=== PATIENT | male | born 2000 | race American Indian/Alaskan Native ===

== ENCOUNTER 2021-07-01 05:53 | Emergency (ER) | payer OTHER ==
[2021-07-01] MEDS ORDERED: ACETAMINOPHEN 500 MG TAB PO ONE (10:42)
[2021-07-01] MEDS ORDERED: KETOROLAC 60 MG/2 ML INJ IM ONE (10:42)
[2021-07-01] MEDS ORDERED: dexAMETHasone 20 MG/5 ML VIAL IM ONE (10:44)
--- NOTE | 2021-07-01 10:45 | Emergency Department Report ---
- General Chief Complaint: Upper Respiratory Infection Stated Complaint: COVID SYMPTOMS Time Seen by Provider: 07/01/21 09:58 Source: patient, EMS Mode of arrival: Ambulatory Limitations: No Limitations - History of Present Illness Initial Comments: 20-year-old otherwise healthy male presents to the ER today via EMS with complaints of flulike symptoms. Patient states that symptoms started about earlier this week. He reports productive cough, rhinorrhea, nasal congestion, body aches, generalized weakness, chills, sore throat, and headache. [place] he does not recall being on any specific person who has been sick. He denies any travel. He states that has been tried gigc-gfh-cjjqnap remedies without much relief. He has not taken a COVID-19 test nor flu test since he has been sick. He has not gotten a COVID-19 vaccine or flu vaccine. He does smoke marijuana. Reports no chest pain, shortness of breath, wheezing, GI or symptoms. MD Complaint: fever, cough, sore throat, rhinorrhea, nasal congestion -: Gradual, days(s), week(s) (1) - Related Data Previous Rx's Medication Instructions Recorded Last Taken Type Ibuprofen [Motrin] 600 mg PO Q8H PRN #30 tablet 07/01/21 Unknown Rx Allergies Allergy/AdvReac Type Severity Reaction Status Date / Time No Known Allergies Allergy Verified 07/01/21 05:55 ED Review of Systems ROS: Stated complaint: COVID SYMPTOMS Other details as noted in HPI Comment: All other systems reviewed and negative Constitutional: chills, weakness ENT: throat pain, congestion, other (rhinorrhea) Respiratory: cough. denies: shortness of breath, SOB with exertion, SOB at rest, wheezing Cardiovascular: denies: chest pain, palpitations Gastrointestinal: denies: abdominal pain, nausea, diarrhea, constipation, hematemesis, hematochezia Genitourinary: denies: urgency, dysuria Musculoskeletal: myalgia Skin: denies: rash, lesions, change in color, change in hair/nails, pruritus Neurological: headache. denies: numbness, paresthesias, confusion, abnormal gait, vertigo Psychiatric: denies: anxiety, depression, auditory hallucinations, visual hallucinations, homicidal thoughts, suicidal thoughts Hematological/Lymphatic: denies: easy bleeding, easy bruising ED Past Medical Hx - Medications Home Medications: Home Medications Medication Instructions Recorded Confirmed Last Taken Type Ibuprofen [Motrin] 600 mg PO Q8H PRN #30 tablet 07/01/21 Unknown Rx ED Physical Exam - General Limitations: No Limitations General appearance: alert, in no apparent distress, other (patient ill appearing) - Head Head exam: Present: atraumatic, normocephalic, normal inspection - Eye Eye exam: Present: normal appearance, PERRL, EOMI Pupils: Present: normal accommodation - ENT ENT exam: Present: mucous membranes moist - Expanded ENT Exam Expanded Mouth exam: Present: normal external inspection Teeth exam: Present: normal inspection Throat exam: Positive: tonsillar erythema. Negative: tonsillomegaly, tonsillar exudate, R peritonsillar mass, L peritonsillar mass - Neck Neck exam: Present: normal inspection, full ROM. Absent: lymphadenopathy - Respiratory Respiratory exam: Present: normal lung sounds bilaterally. Absent: respiratory distress, wheezes, rales, rhonchi - Cardiovascular Cardiovascular Exam: Present: normal rhythm, tachycardia, normal heart sounds - GI/Abdominal GI/Abdominal exam: Present: soft. Absent: tenderness, guarding, rebound - Neurological Exam Neurological exam: Present: alert, oriented X3, CN II-XII intact, normal gait - Psychiatric Psychiatric exam: Present: normal affect, normal mood - Skin Skin exam: Present: intact ED Course Vital Signs 07/01/21 07/01/21 05:54 12:39 Temperature 99.8 F H 98.0 F Pulse Rate 114 H 80 Respiratory 18 16 Rate Blood Pressure 135/90 133/80 [Left] O2 Sat by Pulse 100 98 Oximetry ED Medical Decision Making - Radiology Data Radiology results: report reviewed Patient: ELIAS HAN MR#: [id number] 3 : 2000 Acct:[id number] Age/Sex: 20 / M ADM Date: 07/01/21 Loc: ED Attending Dr: Ordering Physician: CAMILA DOWD Date of Service: 07/01/21 Procedure(s): XR chest routine 2V Accession Number(s): [id number] cc: CAMILA DOWD Fluoro Time In Minutes: CHEST 2 VIEWS INDICATION / CLINICAL INFORMATION: cough/fever. COMPARISON: None available. FINDINGS: SUPPORT DEVICES: None. HEART / MEDIASTINUM: No significant abnormality. LUNGS / PLEURA: No significant pulmonary or pleural abnormality. No pneumothorax. ADDITIONAL FINDINGS: No significant additional findings. IMPRESSION: 1. No acute findings. Signer Name: Ash Carroll MD Signed: 07/01/2021 11:17 AM Workstation Name: [id number] Transcribed By: MICH Dictated By: Ash Carroll MD Electronically Authenticated By: Ash Carroll MD Signed Date/Time: 07/01/211116 DD/ 16 TD/TT: - Medical Decision Making Rapid flu is negative. Chest x-ray shows no pneumonia. Repeat vital signs shows improvement of patient's heart rate. And remaining vital signs are stable. Patient currently seen on the recliner. He is not currently in any significant pain or respiratory distress. He is not significantly ill- appearing. He appears well-hydrated. He is neurologically intact with a normal gait. He has no meningeal signs on exam. Abdomen soft and nontender. Discussed results with patient. Suspect viral illness/Covid. Informed patient that he should take a COVID-19 test once he gets discharged from the hospital and he can get it done at either a local pharmacy or urgent care as this could be the cause of his symptoms. Patient treatment will be geared towards the symptoms at this time. Patient will be instructed to follow-up with his PCP. Patient understands to return to the ER if his symptoms worsens in any way. - Differential Diagnosis COVID-19, flu, pneumonia Critical care attestation.: If time is entered above; I have spent that time in minutes in the direct care of this critically ill patient, excluding procedure time. ED Disposition Clinical Impression: Viral syndrome, Suspected COVID-19 virus infection Disposition: HOME / SELF CARE / HOMELESS Is pt being admited?: No Does the pt Need Aspirin: No Condition: Stable Instructions: COVID-19, COVID-19: How to Protect Yourself and Others - CDC, Viral Illness, Adult Additional Instructions: You have your flu test today was negative. Chest x-ray did not show pneumonia. I am concerned that your symptoms could be related to Covid and I do recommend that you get a Covid test at any local urgent care or pharmacy once you leave here today. In the meantime lots of fluids, take the ibuprofen and alternate with Tylenol for any pain or fever, take a multivitamin, and rest. You can also take upcj-zoc-trxzjyy cough cold or flulike medications to help your symptoms. Follow-up with your PCP. Return to the ER if your symptoms changes or worsens in any way. Prescriptions: Ibuprofen [Motrin] 600 mg PO Q8H PRN #30 tablet PRN Reason: Pain Referrals: PRIMARY CARE, [Primary Care Provider] - 3-5 Days Forms: Work/School Release Form(ED) Time of Disposition: 12:34
--- NOTE | 2021-07-01 11:21 | XRay Report ---
CHEST 2 VIEWS INDICATION / CLINICAL INFORMATION: cough/fever. COMPARISON: None available. FINDINGS: SUPPORT DEVICES: None. HEART / MEDIASTINUM: No significant abnormality. LUNGS / PLEURA: No significant pulmonary or pleural abnormality. No pneumothorax. ADDITIONAL FINDINGS: No significant additional findings. IMPRESSION: 1. No acute findings. Signer Name: Ash Carroll MD Signed: 07/01/2021 11:17 AM Workstation Name: [id number]
[2021-07-01 12:41] VITALS: BP 133/80
== END 2021-07-01 12:43 | disposition home or self-care (01) ==
LOC: ED 05:53
DX: B34.9 Viral infection, unspecified (principal); Z20.822 Contact with and (suspected) exposure to COVID-19
CPT/HCPCS: 71046; 87400; 96372; 99284; J1100; J1885